=== PATIENT | female | born 1985 | race Caucasian/White ===

== ENCOUNTER 2020-09-21 20:43 | Outpatient (CLI) | payer OTHER ==
[~2020-09-21 20:43] MED LIST: COLACE 100MG C100 MG PO; PHENERGAN 12.12.5 M1 PO; TORADOL 10 MG T10 MG PO; ZYVOX600 MG PO
[2020-09-21 23:28] LABS: RED BLOOD COUNT 3.98 M/UL (4.00-5.10); WHITE BLOOD COUNT 14.3 K/UL (4.5-11.0)
== END 2020-09-22 00:06 | disposition home or self-care (01) ==
LOC: GENOP 20:43
PROVIDERS: Obstetrics & Gynecology
DX: O62.9 Abnormality of forces of labor, unspecified (principal); Z3A.37 37 weeks gestation of pregnancy
CPT/HCPCS: 36415; 81001; 83518; 85025; 96360; 96361

== ENCOUNTER 2020-09-28 01:51 | Inpatient (IN) | payer OTHER ==
[2020-09-28 02:52] LABS: RED BLOOD COUNT 4.06 M/UL (4.00-5.10); WHITE BLOOD COUNT 16.6 K/UL (4.5-11.0)
[2020-09-29 07:08] LABS: HEMOGLOBIN 10.7 gm/dl (12.3-15.3)
[2020-09-29] MEDS ORDERED: HYDROCODON-ACE1 EAC4 PO (09:01)
[2020-09-29] MEDS ORDERED: IBUPROFEN600 MG PO (09:01)
== END 2020-09-30 14:30 | disposition home or self-care (01) | DRG 806 ==
LOC: GENOP 01:51 → OB 02:54
PROVIDERS: ADMIT Obstetrics & Gynecology
PROC: 10E0XZZ Delivery of Products of Conception, External Approach (ICD-10-PCS; principal; 2020-09-28)
PROC: 3E0234Z Introduction of Serum, Toxoid and Vaccine into Muscle, Percutaneous Approach (ICD-10-PCS; 2020-09-28)
DX: O62.3 Precipitate labor (principal); O99.354 Diseases of the nervous system complicating childbirth; Z37.0 Single live birth; O99.324 Drug use complicating childbirth; Z3A.38 38 weeks gestation of pregnancy; O99.343 Other mental disorders complicating pregnancy, third trimester; F32.9 Major depressive disorder, single episode, unspecified; O75.89 Other specified complications of labor and delivery; G43.909 Migraine, unspecified, not intractable, without status migrainosus; G40.909 Epilepsy, unspecified, not intractable, without status epilepticus; O99.334 Smoking (tobacco) complicating childbirth; F15.90 Other stimulant use, unspecified, uncomplicated; F12.90 Cannabis use, unspecified, uncomplicated; Z20.822 Contact with and (suspected) exposure to COVID-19; Z23 Encounter for immunization
CPT/HCPCS: 36415; 51702; 80307; 85014; 85018; 85025; 87635; 90471; 90472; 90715; J1885; J2590

== ENCOUNTER 2020-10-05 21:55 | Emergency (ER) | payer OTHER ==
[~2020-10-05 21:55] MED LIST changes: +HYDROCODON-ACE1 EAC4 PO; +IBUPROFEN600 MG PO
== END 2020-10-06 11:00 | disposition left against medical advice (07) ==
LOC: ER1 21:55
DX: R10.9 Unspecified abdominal pain (principal); N93.9 Abnormal uterine and vaginal bleeding, unspecified; Z53.21 Procedure and treatment not carried out due to patient leaving prior to being seen by health care provider